=== PATIENT | male | born 1940 | race Caucasian/White ===

== ENCOUNTER 2016-09-29 08:44 | Emergency (ER) | payer OTHER ==
[2016-09-29] MEDS ORDERED: DULCOLAX PR ONE (09:45)
--- NOTE | 2016-09-29 09:47 | PROVIDER DOCUMENTATION ---
HPI-Abdominal Pain/GI Problem - General Source: family - History of Present Illness-ABD Abdominal Pain Onset Location: reports: [facility] Pain Radiation: reports: no radiation Quality of Pain: reports: cramping Severity in ED: reports: mild Onset/Duration: reports: 6 days ago Timing: reports: still present Exposure to sick contacts?: No Modifying Factors: worse with: defecating Associated Symptoms: reports: constipation. denies: vomiting Last BM: 6 days ago Dark Stools Present?: reports: none noticed Rectal Bleeding: reports: none Rectal Pain: reports: none Bruising or Bleeding Gums?: No Similar Symptoms Previously?: No Recently seen or treated by another doctor?: No <Rosalva Vines - Last Filed: 09/29/16 10:08> <Florencio Eldridge - Last Filed: 09/29/16 11:25> - General Chief Complaint: Constipation Stated Complaint: CONSTIPATION Time Seen by Provider: 09/29/16 09:20 Allergies/Adverse Reactions: Patient Allergies Allergy/AdvReac Type Severity Reaction Status Date / Time simvastatin [From Zocor] Allergy Mild HIVES Verified 09/29/16 09:49 Home Medications: ATORVAstatin [Lipitor] 40 mg PO DAILY 09/29/16 Celecoxib 200 mg PO DAILY 09/29/16 Furosemide 40 mg PO DAILY 09/29/16 Isosorbide Mononitrate [Imdur] 120 mg PO DAILY 09/29/16 Metoprolol [Lopressor] 200 mg PO DAILY 09/29/16 Nifedipine [Nifedical Xl] 60 mg PO DAILY 09/29/16 - History of Present Illness-ABD Nature of Presenting Problems: Pt is a 75 yom who came to the ED with a cc of constipation. Pt reports he had knee replacement surgery on Friday and was prescribed pain medication. Pt reports his last bowel movement was on Friday. Pt reports he has the urge to use the restroom but just can't. (Rosalva Vines) Review of Systems - Adult - REVIEW OF SYSTEMS - ADULT Constitutional: denies: chills, fever Eyes: denies: blurred vision, double vision Ears, Nose, Mouth & Throat: reports: no symptoms reported Cardiovascular: denies: orthopnea, PND Respiratory: reports: no symptoms reported Gastrointestinal: reports: abdominal pain, constipation. denies: diarrhea, difficulty swallowing, nausea, vomiting Genitourinary: reports: no symptoms reported Musculoskeletal: reports: no symptoms reported Integumentary: denies: itching, nail changes Neurological: reports: no symptoms reported Psychiatric: reports: no symptoms reported Endocrine: reports: no symptoms reported Hematologic/Lymphatic: reports: no symptoms reported Allergic/Immunologic: reports: no symptoms reported All Other Systems: Reviewed and Negative <Rosalva Vines - Last Filed: 09/29/16 10:08> Past History - Adult - PAST MEDICAL HISTORY-ADULT Review of Records: reports: Old Records Reviewed, Nursing Assessment Review Major Childhood Illnesses: reports: denies history Cardiovascular: reports: cardiac disease (blockage), HTN, hyperlipidemia Respiratory: reports: denies history Gastrointestinal: reports: GERD Obstetrical/Gynecological: reports: denies history Genitourinary: reports: denies history Musculoskeletal: reports: other (restless leg) Neurological: reports: denies history Endocrine/Immune: reports: Diabetes Diabetes Type: Type 2 Other Conditions: reports: denies history - PRIOR SURGERIES/PROCEDURES Surgical/Procedure History: reports: CABG, cardiac stent - IMMUNIZATION STATUS Childhood Immunizations: See Nurse Assessment Flu Vaccine: See Nurse Assessment - FAMILY HISTORY Family History: reviewed, not pertinent <Rosalva Vines - Last Filed: 09/29/16 10:08> Physical Exam-General - PHYSICAL EXAM-ADULT Initial Vital Signs Reviewed: Yes - CONSTITUTIONAL General Appearance: appears well, alert, no apparent distress - EYES Eyes: PERRL/EOMI, pink conjunctivae - HEAD, EARS, NOSE, MOUTH & THROAT HENMT: normocephalic/atraumatic, moist mucous membranes, normal ENT inspection - NECK Neck: non-tender, full range of motion, normal inspection - RESPIRATORY Respiratory: chest non-tender, lungs clear, normal breath sounds - CARDIOVASCULAR Cardiovascular: normal peripheral pulses, regular rate, rhythm, no edema - GASTROINTESTINAL (ABDOMEN) Abdominal Exam: normal bowel sounds, soft, tenderness - LYMPHATIC Lymphatic: no adenopathy - MUSCULOSKELETAL Back Exam: normal inspection, no CVA tenderness, no vertebral tenderness Extremity: normal range of motion, non-tender, normal gait - SKIN Integumentary: normal color, normal turgor, warm/dry - NEUROLOGIC Neurologic: grossly normal, no motor/sensory deficits - PSYCHIATRIC Psych/Mental Status: normal mood/affect, normal thought content, normal thought process, oriented x 3 <Rosalva Vines - Last Filed: 09/29/16 10:08> Progress <Rosalva Vines - Last Filed: 09/29/16 10:08> - REASSESSMENT Reassessment #1 Time Reassessed: 11:23 Status: improving (Pt had a big) Reassessment Comment: Had a big bowel movement and feels relieved. <EldridgeFlorencio X - Last Filed: 09/29/16 11:25> - PLAN OF CARE/RESULTS Progress/Plan/Lab Results: Orders Category Date Time Status KUB ABDOMEN [RAD] Stat Exams 09/29/16 09:26 Taken Bisacodyl [Dulcolax] Med 09/29/16 09:45 Discontinued 20 mg TN NOW ONE Methylnaltrexone [Relistor] Med 09/29/16 10:15 Discontinued 12 mg SUBQ NOW ONE Vital Signs - 24 hr 09/29/16 08:51 Temperature 97.7 F Pulse Rate 58 L Respiratory 18 Rate Blood Pressure 155/70 O2 Sat by Pulse 100 Oximetry (Rosalva Vines) Vital Signs Temp Pulse Resp BP Pulse Ox 09/29/16 08:51 97.7 F 58 L 18 155/70 100 simvastatin [From Zocor] Allergy (Mild, Verified 09/29/16 09:49) HIVES Metformin E.r. [Glucophage Xr] 500 mg PO BID #0 tablet 07/27/16 Nitroglycerin Sl [Nitroglycerin] 0.4 mg SL Q5M PRN PRN #0 tablet 07/27/16 Ropinirole [Requip] 5 mg PO QHS #0 tablet 07/27/16 Rivaroxaban [Xarelto] 10 mg PO Q24H #14 tablet 09/25/16 ATORVAstatin [Lipitor] 40 mg PO DAILY 09/29/16 Celecoxib 200 mg PO DAILY 09/29/16 Furosemide 40 mg PO DAILY 09/29/16 Isosorbide Mononitrate [Imdur] 120 mg PO DAILY 09/29/16 Metoprolol [Lopressor] 200 mg PO DAILY 09/29/16 Nifedipine [Nifedical Xl] 60 mg PO DAILY 09/29/16 Orders Category Date Time Status KUB ABDOMEN [RAD] Stat Exams 09/29/16 09:26 Taken Bisacodyl [Dulcolax] Med 09/29/16 09:45 Discontinued 20 mg TN NOW ONE Diltiazem [Cardizem] Med 09/29/16 10:41 Discontinued 25 mg .ROUTE .STK-MED ONE Methylnaltrexone [Relistor] Med 09/29/16 10:15 Discontinued 12 mg SUBQ NOW ONE (Florecnio Eldridge) Departure <Rosalva Vines - Last Filed: 09/29/16 10:08> - Departure Time of Disposition Order: 11:24 Certified Medical Emergency: Emergent <Florencio Eldridge - Last Filed: 09/29/16 11:25> - Departure DIAGNOSIS: Constipation Qualifiers: Constipation type: drug induced constipation Qualified Code(s): K59.03 - Drug induced constipation Disposition: HOME 01 Condition: Stable Additional Instructions: Follow up with your regular MD in 2-3 days. Continue the stool softener prescribed. Return to ER as needed. Referrals: Bryan Hannon MD [Primary Care Provider] - Attestation - Scribe Verification/Attestation Scribe:: Rosalva Vines Acting as Scribe for:: Florencio Eldridge Scribe documention review:: This chart was documented by a scribe and accurately reflects the service the provider performed and the decisions made by the provider. <Rosalva Vines - Last Filed: 09/29/16 10:08> Physician Attestation
[2016-09-29] MEDS ORDERED: RELISTOR SUBQ ONE (10:15)
[2016-09-29] MEDS ORDERED: CARDIZEM ONE (10:41)
[2016-09-29 11:41] VITALS: BP 147/76
--- NOTE | 2016-09-29 14:09 | Diag Imaging Result Document ---
PROCEDURE NAME: ANETTE ABDOMEN - 09/29/2016 SUPINE RADIOGRAPH OF THE ABDOMEN AND PELVIS: COMPARISON: None available. FINDINGS: There is a fairly large amount of stool throughout the colon suggesting moderate to severe constipation. There is no obstructive bowel pattern. There is no evidence of large-volume free abdominal gas. There is degenerative change at the lower lumbar spine. IMPRESSION: Constipation as described.
== END 2016-09-29 11:40 | disposition home or self-care (01) ==
LOC: ED 08:44
DX: K59.03 Drug induced constipation (principal); Z96.659 Presence of unspecified artificial knee joint; R10.9 Unspecified abdominal pain; I10 Essential (primary) hypertension; E78.5 Hyperlipidemia, unspecified; K21.9 Gastro-esophageal reflux disease without esophagitis; G25.81 Restless legs syndrome; E11.9 Type 2 diabetes mellitus without complications; Z79.899 Other long term (current) drug therapy; Z95.1 Presence of aortocoronary bypass graft; Z95.5 Presence of coronary angioplasty implant and graft
CPT/HCPCS: 74000; 96372

== ENCOUNTER 2017-02-26 10:31 | Inpatient (IN) ==
[2017-02-24 13:05] LABS: HEMATOCRIT 39.7 % (42.0-52.0); MCHC 32.7 g/dL (33-37); MCV 82.4 FL (81-99); MPV 10.5 FL (7.4-10.4); RBC 4.82 XMIL (4.7-6.1)
[2017-02-24 13:27] LABS: POTASSIUM 4.5 mmol/L (3.5-5.1)
[2017-02-26] MEDS ORDERED: KEFZOL 2 GM/D5W 2 GM/50 ML IVPB ONE (10:51)
[2017-02-26] MEDS ORDERED: LR 1,000 ML ONE ×2 (10:51→15:39)
[2017-02-26] MEDS ORDERED: NEOSPORIN G.U. IRRIGANT ONE (13:00)
[2017-02-26] MEDS ORDERED: MARCAINE 0.25% PF ONE (13:00)
[2017-02-26] MEDS ORDERED: DIPRIVAN 1% ONE (14:26)
[2017-02-26] MEDS ORDERED: FENTANYL ONE (14:26)
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
[2017-02-26] MEDS ORDERED: ZOFRAN ONE (15:39)
[2017-02-26] MEDS ORDERED: XYLOCAINE-MPF 2% ONE (15:39)
[2017-02-26] MEDS: MORPHINE ONE ×3 (15:43→16:19)
[2017-02-26] MEDS ORDERED: NS 1,000 ML ONE (15:43)
[2017-02-26] MEDS ORDERED: ZOFRAN IV PRN (15:44)
[2017-02-26] MEDS ORDERED: HALDOL IV PRN (15:44)
[2017-02-26] MEDS ORDERED: MORPHINE IV PRN (15:44)
[2017-02-26] MEDS ORDERED: MILK OF MAGNESIA PO PRN (15:44)
[2017-02-26] MEDS ORDERED: OXY IR PO PRN (15:44)
[2017-02-26] MEDS: TYLENOL PO SCH ×2 (15:52→21:18)
[2017-02-26] MEDS ORDERED: APRESOLINE ONE (16:15)
[2017-02-26] MEDS ORDERED: NITROGLYCERIN SL PRN (17:30)
[2017-02-26] MEDS: LOPRESSOR PO SCH (18:03)
[2017-02-26] MEDS: PROCARDIA ER PO SCH (18:15)
[2017-02-26] MEDS: NS 1,000 ML IV SCH (18:25)
[2017-02-26] MEDS: PERIDEX MT SCH (21:17)
[2017-02-26] MEDS: KEFZOL 2 GM/D5W 2 GM/50 ML IVPB IV SCH (21:17)
[2017-02-26] MEDS: COLACE PO SCH (21:18)
[2017-02-26] MEDS: REQUIP PO SCH (21:18)
[2017-02-26] MEDS: GLUCOPHAGE XR PO SCH (21:21)
[2017-02-27] MEDS: NS 1,000 ML IV SCH ×2 (03:06→15:59)
[2017-02-27] MEDS: TYLENOL PO SCH ×3 (03:06→18:47)
[2017-02-27] MEDS: XARELTO PO SCH (05:32)
[2017-02-27] MEDS: KEFZOL 2 GM/D5W 2 GM/50 ML IVPB IV SCH (05:32)
[2017-02-27 06:06] LABS: HEMATOCRIT 39.8 % (42.0-52.0); HEMOGLOBIN 12.8 g/dL (14.0-18.0)
[2017-02-27 06:42] LABS: CALCIUM 8.7 mg/dL (8.8-10.2); POTASSIUM 4.8 mmol/L (3.5-5.1)
--- NOTE | 2017-02-27 07:10 | PROGRESS NOTE ---
DATE: 02/27/2017 SUBJECTIVE: Patient is a 76-year-old male, who is 1 day status post open reduction, internal fixation right patella. He is currently resting comfortably. He has no complaints. OBJECTIVE: The patient's dressing is intact. His calf is soft. He has active dorsiflexion, plantar flexion. He is neurovascularly intact distally. LABORATORY DATA: His hemoglobin is 12.8, hematocrit is 39.8. IMPRESSION: Postop day #1 status post open reduction, internal fixation right patella. PLAN: At this point, will change his dressing. The patient will be maintained in a knee immobilizer with his knee in full extension. He will be touchdown weightbearing right lower extremity. Patient has multiple medical problems, and with previous lacunar infarcts, right cerebral hemisphere, left-sided weakness, transient essential hypertension. Type 2 diabetes mellitus, ischemic heart disease, and it was felt that patient would benefit from inpatient rehabilitation. We will consult [employer] for discharge planning. cc: Chauncey Johnson MD
[2017-02-27] MEDS ORDERED: OXY IR PO PRN (07:15)
[2017-02-27] MEDS: PERIDEX MT SCH ×2 (09:14→21:56)
[2017-02-27] MEDS: PROCARDIA ER PO SCH (09:14)
[2017-02-27] MEDS: FERROUS SULFATE PO SCH (09:14)
[2017-02-27] MEDS: LOPRESSOR PO SCH (09:14)
[2017-02-27] MEDS: LASIX PO SCH (09:14)
[2017-02-27] MEDS: GLUCOPHAGE XR PO SCH ×2 (09:14→21:56)
--- NOTE | 2017-02-27 15:34 | Diag Imaging Result Doc PS360 ---
EXAM: CHEST-PORTABLE - 02/27/2017 HISTORY: rehab TECHNIQUE: Portable chest 1515 COMPARISON: 07/26/2016 FINDINGS: There is stable cardiomegaly. There are sternal wires from previous surgery and transvenous cardiac pacemaker again seen. The lungs appear essentially clear. There is no pleural effusion or pneumothorax identified. IMPRESSION: Stable cardiomegaly. No evidence of acute disease. Electronically signed by Derrick Davis 02/27/2017 3:32 PM
[2017-02-27] MEDS: COLACE PO SCH (21:56)
[2017-02-27] MEDS: REQUIP PO SCH (21:57)
[2017-02-27] MEDS: LIPITOR PO SCH (21:57)
[2017-02-28] MEDS: TYLENOL PO SCH (03:06)
[2017-02-28] MEDS ORDERED: TYLENOL PR PRN (06:13)
[2017-02-28] MEDS ORDERED: TYLENOL PO PRN (06:18)
[2017-02-28 06:20] LABS: HEMATOCRIT 35.9 % (42.0-52.0); HEMOGLOBIN 11.7 g/dL (14.0-18.0)
[2017-02-28] MEDS: XARELTO PO SCH (06:49)
--- NOTE | 2017-02-28 06:53 | PROGRESS NOTE ---
DATE: 02/28/2017 SUBJECTIVE: The patient is a 76-year-old male who is 2 days status post open reduction, internal fixation right patella. He is currently resting comfortably. He has no complaints. OBJECTIVE: On physical exam of his right lower extremity, wound looks good. There are no signs or symptoms of infection. He has some mild swelling. Calf is soft. He has active dorsiflexion and plantar flexion. LABORATORY DATA: Hemoglobin is 11.7 and hematocrit 35.9. IMPRESSION: Postop day #2, status post open reduction internal fixation right patella. PLAN: At this point, patient will be maintained in the immobilizer in full extension. He will progress in physical therapy to touchdown weightbearing right lower extremity. We will plan on discharge to rehab tomorrow. cc: Chauncey Johnson MD
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
[2017-02-28] MEDS: LASIX PO SCH (08:20)
[2017-02-28] MEDS: FERROUS SULFATE PO SCH (08:20)
[2017-02-28] MEDS: PROCARDIA ER PO SCH (08:20)
[2017-02-28] MEDS: LOPRESSOR PO SCH (08:20)
[2017-02-28] MEDS: GLUCOPHAGE XR PO SCH ×2 (08:20→22:24)
[2017-02-28] MEDS: PERIDEX MT SCH ×2 (08:22→22:24)
[2017-02-28] MEDS ORDERED: GLYCERIN ADULT PR ONE (11:54)
[2017-02-28] MEDS: LIPITOR PO SCH (22:24)
[2017-02-28] MEDS: REQUIP PO SCH (22:24)
[2017-02-28] MEDS: COLACE PO SCH (22:24)
[2017-03-01 05:22] LABS: HEMATOCRIT 36.3 % (42.0-52.0); HEMOGLOBIN 11.9 g/dL (14.0-18.0)
[2017-03-01] MEDS: XARELTO PO SCH (06:58)
[2017-03-01] MEDS: LOPRESSOR PO SCH ×2 (07:41→11:00)
[2017-03-01] MEDS: GLUCOPHAGE XR PO SCH ×2 (07:41→10:59)
[2017-03-01] MEDS: PERIDEX MT SCH ×2 (07:41→10:59)
[2017-03-01] MEDS: FERROUS SULFATE PO SCH (07:41)
[2017-03-01] MEDS: LASIX PO SCH ×2 (07:41→10:59)
[2017-03-01] MEDS: PROCARDIA ER PO SCH ×2 (07:44→10:59)
[2017-03-01 11:20] VITALS: BP 136/72
== END 2017-03-01 12:49 ==
LOC: OR 10:31 → INTOOBSV 11:08 → 4N 14:11
PROVIDERS: ADMIT Orthopaedic Surgery Adult Reconstructive Orthopaedic Surgery; ATTEND Orthopaedic Surgery Adult Reconstructive Orthopaedic Surgery

== ENCOUNTER 2018-10-28 05:21 | Inpatient (IN) ==
--- NOTE | 2018-10-19 10:22 | EKG Report ---
Test Performed on : 10/19/2018 10:04:51 AM Test Reason : PAT Blood Pressure : / mmHG Vent. Rate : 063 BPM Atrial Rate : 375 BPM P-R Int : 000 ms QRS Dur : 096 ms QT Int : 446 ms P-R-T Axes : 000 098 -53 degrees QTc Int : 456 ms Atrial fibrillation. with occasional ventricular-paced complexes with premature ventricular or aberra ntly conducted complexes. Rightward axis Cannot rule out Anterior infarct , age undetermined ST & T wave abnormality, consider inferolateral ischemia Abnormal ECG When compared with ECG of 08-AUG-2017 06:50, No significant change was found Confirmed by Parvez CHUA, Bryan Justin ([id number]) on 10/19/2018 5:40:36 PM
[2018-10-19 12:04] LABS: BASO# 0.02 X1000 (0.0-0.2); BASO% 0.3 % (0.0-0.8); EOS% 2.7 % (0.0-10.0); HEMATOCRIT 44.2 % (42.0-52.0); LYMPH# 1.88 X1000 (1.2-3.4); LYMPH% 25.4 % (20.5-51.1); MCH 25.8 PG (27-31); MCHC 31.7 g/dL (33-37); MCV 81.5 FL (81-99); MONO# 0.35 X1000 (0.11-0.59); MONO% 4.7 % (1.7-9.3); MPV 10.6 FL (7.4-10.4); NEUT# 4.95 X1000 (1.4-6.5); NEUT% 66.9 % (42.2-75.2); PLT 273 X1000 (130-400); RBC 5.42 XMIL (4.7-6.1); RDW 14.5 % (11.5-14.5); URINE SOURCE CLEAN CATCH
[2018-10-19 12:08] LABS: BILIRUBIN URINE NEGATIVE (NEGATIVE); BLOOD URINE SMALL (NEGATIVE); COLOR YELLOW; GLUCOSE URINE NEGATIVE (NEGATIVE); KETONE URINE NEGATIVE (NEGATIVE); LEUKOCYTES URINE NEGATIVE (NEGATIVE); NITRITE URINE NEGATIVE (NEGATIVE); PH URINE 6.5; PROTEIN URINE 50 mg/dL (NEGATIVE); SP GRAVITY URINE 1.017; TURBIDITY URINE CLEAR (CLEAR); UROBILINOGEN URINE NORMAL (NORMAL)
[2018-10-19 12:09] LABS: UR EPITHELIAL CELLS <10 /HPF (<10); URINE BACTERIA NEGATIVE /HPF; URINE RBC <10 /HPF (<10); URINE WBC <10 /HPF (<10)
[2018-10-19 12:15] LABS: INR 1.03; PROTIME 14.4 Seconds (11.0-16.0); PTT 29.4 Seconds (22.3-41.8)
[2018-10-19 12:49] LABS: CALCIUM 9.4 mg/dL (8.8-10.2); CREATININE 1.3 mg/dL (0.7-1.2); POTASSIUM 4.8 mmol/L (3.5-5.1)
[2018-10-28] MEDS ORDERED: LR 1,000 ML ONE (05:53)
[2018-10-28] MEDS ORDERED: PEPCID ONE (05:53)
[2018-10-28] MEDS ORDERED: REGLAN ONE (05:53)
[2018-10-28] MEDS ORDERED: LYRICA ONE (05:53)
[2018-10-28] MEDS ORDERED: COLACE ONE (05:53)
[2018-10-28] MEDS ORDERED: CELEBREX ONE (05:53)
[2018-10-28] MEDS ORDERED: KEFZOL 1 GM/D5W 2 GM/100 ML IVPB ONE (05:54)
[2018-10-28] MEDS ORDERED: DIPRIVAN 1% 500 MG/50 ML BOTTLE ONE (06:19)
[2018-10-28] MEDS ORDERED: ROBINUL ONE (06:36)
[2018-10-28] MEDS ORDERED: XYLOCAINE-MPF 2% ONE (06:36)
[2018-10-28] MEDS ORDERED: DECADRON ONE (06:39)
[2018-10-28] MEDS ORDERED: FENTANYL ONE (06:40)
[2018-10-28] MEDS ORDERED: SODIUM CHLORIDE 0.9% 20 ML ONE (06:41)
[2018-10-28] MEDS ORDERED: NEO-SYNEPHRINE ONE (06:41)
[2018-10-28] MEDS ORDERED: VERSED ONE (06:41)
[2018-10-28] MEDS ORDERED: TORADOL ONE (06:50)
[2018-10-28] MEDS ORDERED: VANCOMYCIN ONE (06:50)
[2018-10-28] MEDS ORDERED: DURAMORPH ONE (06:50)
[2018-10-28] MEDS ORDERED: EXPAREL 1.3% ONE (06:51)
[2018-10-28] MEDS ORDERED: CYKLOKAPRON 1,000 MG/NS 0 MG/0 ML IVPB ONE (06:51)
[2018-10-28] MEDS ORDERED: NEOSPORIN G.U. IRRIGANT ONE (06:51)
[2018-10-28] MEDS ORDERED: SODIUM CHLORIDE 0.9% ONE (06:51)
[2018-10-28] MEDS ORDERED: SENSORCAINE-MPF 0.5%/EPI 1:200,000 ONE (06:51)
[2018-10-28] MEDS ORDERED: CYKLOKAPRON 1,000 MG/NS 1,000 MG/100 ML IVPB ONE (07:22)
[2018-10-28] MEDS ORDERED: ZOFRAN ONE (07:42)
[2018-10-28] MEDS ORDERED: OFIRMEV 1000 MG/ISOTONIC SOLN 1,000 MG/100 ML BOTTLE ONE (07:45)
[2018-10-28 08:34] LABS: URINE SOURCE CATH
[2018-10-28] MEDS ORDERED: EPHEDRINE ONE (08:39)
[2018-10-28] MEDS ORDERED: DILAUDID ONE (08:46)
[2018-10-28 09:02] LABS: BILIRUBIN URINE NEGATIVE (NEGATIVE); BLOOD URINE TRACE (NEGATIVE); COLOR YELLOW; GLUCOSE URINE NEGATIVE (NEGATIVE); KETONE URINE NEGATIVE (NEGATIVE); LEUKOCYTES URINE NEGATIVE (NEGATIVE); NITRITE URINE NEGATIVE (NEGATIVE); PROTEIN URINE TRACE mg/dL (NEGATIVE); SP GRAVITY URINE 1.015; TURBIDITY URINE CLEAR (CLEAR); UR EPITHELIAL CELLS <10 /HPF (<10); URINE BACTERIA NEGATIVE /HPF; URINE RBC <10 /HPF (<10); URINE WBC <10 /HPF (<10); UROBILINOGEN URINE NORMAL (NORMAL)
[2018-10-28] MEDS ORDERED: NS 1,000 ML ONE (09:07)
[2018-10-28] MEDS: DILAUDID ONE ×4 (09:15→10:05)
--- NOTE | 2018-10-28 09:53 | Diag Imaging Result Doc PS360 ---
EXAM: KNEE 1-2 VIEWS-LEFT HISTORY: L TKA TECHNIQUE: Left knee, two views COMPARISON: None. FINDINGS: There has been recent orthopedic replacement of the left knee. Good alignment to the femoral and tibial components. There are anterior skin brandy and there is a superior surgical drain. IMPRESSION: Normal postop knee. Electronically signed by Axel Szymanski 10/28/2018 9:51 AM
[2018-10-28] MEDS ORDERED: ZOFRAN PO PRN (11:15)
[2018-10-28] MEDS ORDERED: OXY IR PO PRN ×2 (11:15)
[2018-10-28] MEDS ORDERED: OXY IR ONE (11:24)
[2018-10-28] MEDS: BASAGLAR SUBQ SCH (12:53)
[2018-10-28] MEDS: NS 1,000 ML IV SCH ×2 (12:57→21:47)
[2018-10-28] MEDS ORDERED: KEFZOL 2 GM/D5W 2 GM/50 ML IVPB IV SCH (15:00)
--- NOTE | 2018-10-28 16:00 | OPERATIVE NOTE ---
PROCEDURE DATE: 10/28/2018 PREOPERATIVE DIAGNOSIS: Degenerative osteoarthritis of the left knee. POSTOPERATIVE DIAGNOSIS: Degenerative osteoarthritis of the left knee. PROCEDURE: Left total knee arthroplasty with a DePuy Attune size 7 posterior stabilized femur, size 7 tibial tray, a 6 mm rotating platform tibial insert, and a 38 mm medialized anatomic patella. SURGEON: Chauncey Johnson MD. FIRST ASSISTANTS: MELODY Villasenor. SECOND PM TECHNICIAN: Lewis Zapata RN. ANESTHESIA: General. IV FLUIDS: 1500 mL lactated Ringer. ESTIMATED BLOOD LOSS: 25 mL. TOURNIQUET TIME: 75 minutes at 300 mmHg. COMPLICATIONS: None. INDICATION: The patient is a 77-year-old male with a chronic history of pain and discomfort of his left knee. X-rays revealed significant degenerative osteoarthritis and his pain has progressed to affect his activities of daily living. Recommendation to proceed with left total knee arthroplasty was offered. Risks and benefits of surgery were explained, including the risks of anesthesia, , bleeding, infection, failure to relieve pain, postoperative stiffness, nerve injury, blood clots, and other imponderables. All questions were answered and the patient and family wish to proceed with surgery. DETAILS OF OPERATION: The patient was taken to the operating room and placed supine on the operating table. Once adequate anesthesia was obtained, patient's left lower extremity was subsequently prepped and draped in usual sterile fashion. Esmarch was used to exsanguinate the left lower extremity. The tourniquet was inflated to 350 mmHg. A standard anterior incision was made with a skin knife. Medial and lateral skin envelopes were developed. Standard medial parapatellar arthrotomy was then performed. Patella fat pad was excised. Retractor was then placed approximately 1 cm anterior to the PCL insertion. A starting reamer was passed. Intramedullary guide with a distal cutting block was pinned in position. Distal femoral cut was then performed in a standard fashion. A sizing block was placed and measured to size 7. Corresponding pins were placed. A size 7 cutting block was placed in position. Anterior, posterior, chamfer cuts were then made. Attention then turned to the proximal tibia where the extramedullary guide and proximal tibia cutting block was pinned in position. Proximal tibia was then resected. A curved osteotome was used to remove the posterior osteophytes off the distal femur. A spacer block was placed and had good soft tissue balancing in both flexion and extension. Attention then turned back to the proximal tibia where a size 7 tibial tray appeared to be the correct size. This was pinned in position. This was followed by a central reamer and a fin punch. A box cutting guide was placed on the distal femur. A box cut was performed. A trial femoral component was then placed and the 2 lug holes were drilled. A tibial insert was placed and had good soft tissue balancing. The patella was everted and resected in a standard fashion. A size 38 appeared to be the correct size. Corresponding holes were drilled. A trial component was then placed and had good patellofemoral tracking. The trial components were removed. Copious irrigation was performed with antibiotic pulsatile lavage while vancomycin was mixed with cement on the back table. Sequential cementing was then performed first with the tibial tray and excess cement with a Alfred, followed by the femoral component and excess cement was removed with a Alfred, followed by trial tibial insert in full extension. Axial loading was maintained while cement cured. The patella component was cemented in standard fashion. Patella clamp was placed. While cement was curing, Exparel was placed in the deep soft tissue, as well as the subcutaneous tissue. After cement had cured, a size 6 mm rotating platform tibial insert appeared to be the correct size. The trial components were removed. Exparel was placed in the deep posterior capsule. The wound was copiously irrigated with antibiotic pulsatile lavage. A 6 mm rotating platform tibial insert was then placed and the knee was then carried through range of motion and had good range of motion, good soft tissue balance, and good patellofemoral tracking. A 1/8 Hemovac drain was placed but was not sewn in. Irrigation was performed once again. Number 1 Vicryl was used to repair the arthrotomy, followed by 2-0 Vicryl to repair the subcutaneous tissue, and skin brandy. Adaptic, sterile 4 x 4s, ABD pad, and tape was applied to the right shoulder, followed by a shoulder immobilizer. The patient tolerated the procedure well, no complications, and transferred to recovery room in stable condition. cc: Chauncey Johnson MD
[2018-10-28] MEDS: KEFZOL 2 GM in D5W 50 ML IV SCH (17:36)
[2018-10-28] MEDS: TYLENOL PO PRN (21:47)
[2018-10-28] MEDS: PERIDEX MT SCH (21:48)
[2018-10-28] MEDS: PROCARDIA ER PO SCH (21:48)
[2018-10-28] MEDS: TENORMIN PO SCH (21:48)
[2018-10-28] MEDS: REQUIP PO SCH (21:48)
[2018-10-28] MEDS: GLUCOPHAGE XR PO SCH (21:48)
[2018-10-29] MEDS: KEFZOL 2 GM in D5W 50 ML IV SCH (01:27)
[2018-10-29] MEDS: NS 1,000 ML IV SCH ×2 (05:09→16:10)
[2018-10-29] MEDS: TYLENOL PO PRN (05:53)
[2018-10-29] MEDS: ELIQUIS PO SCH (05:53)
[2018-10-29] MEDS: OXY IR PO PRN (06:00)
[2018-10-29 06:05] LABS: CALCIUM 8.6 mg/dL (8.8-10.2); CREATININE 1.8 mg/dL (0.7-1.2); POTASSIUM 5.4 mmol/L (3.5-5.1)
[2018-10-29 06:13] LABS: HEMATOCRIT 35.6 % (42.0-52.0); HEMOGLOBIN 11.2 g/dL (14.0-18.0)
--- NOTE | 2018-10-29 06:18 | PROGRESS NOTE ---
DATE: 10/29/2018 SUBJECTIVE: The patient is a pleasant 77-year-old male, who is 1 day status post left total knee arthroplasty. He is currently resting comfortably. OBJECTIVE: On physical exam, patient's wound looks good. There is no signs or symptoms of infection. He is grossly neurovascular intact. Does have active dorsiflexion and plantar flexion. LABS: Are pending. IMPRESSION: Postoperative day #1 status post left total knee arthroplasty. PLAN: At this point, his dressing was changed. He will discontinue his drain and Hep-Lock his IV. We will get mobilization with physical therapy. Given the patient's multiple medical problems including previous CVA and his limited mobility and coronary artery disease, with previous pacemaker and ICD, it was felt the patient would benefit from inpatient rehabilitation. He and his family are agreeable to this. We will consult clinical social work therapist for discharge planning. cc: Chauncey Johnson MD
[2018-10-29] MEDS ORDERED: INSULIN PEN NEEDLES ONE (06:56)
[2018-10-29] MEDS: BASAGLAR SUBQ SCH (12:48)
[2018-10-29] MEDS: PERIDEX MT SCH ×2 (13:25→21:52)
[2018-10-29] MEDS: TENORMIN PO SCH (21:52)
[2018-10-29] MEDS: PROCARDIA ER PO SCH (21:52)
[2018-10-29] MEDS: GLUCOPHAGE XR PO SCH (21:52)
[2018-10-29] MEDS: REQUIP PO SCH (21:52)
[2018-10-30] MEDS: OXY IR PO PRN ×3 (05:36→21:47)
[2018-10-30] MEDS: ELIQUIS PO SCH (05:36)
[2018-10-30] MEDS: NS 1,000 ML IV SCH ×2 (05:37→18:06)
[2018-10-30 06:03] LABS: HEMATOCRIT 31.8 % (42.0-52.0)
[2018-10-30 06:42] LABS: CALCIUM 8.3 mg/dL (8.8-10.2); CREATININE 1.5 mg/dL (0.7-1.2); POTASSIUM 4.9 mmol/L (3.5-5.1)
--- NOTE | 2018-10-30 08:54 | PROGRESS NOTE ---
DATE: 10/30/2018 SUBJECTIVE: The patient is a pleasant 77-year-old male, who is 2 days status post left total knee arthroplasty. He is currently resting comfortably. OBJECTIVE: Left lower extremity: Left lower extremity wound looks good. There is no signs or symptoms of infection. He does have some swelling of the lower extremity. He has active dorsiflexion and plantar flexion appeared. Hemoglobin is 10.1. Hematocrit is 31.8. IMPRESSION: Postoperative day #2 status post left total knee arthroplasty. PLAN: At this point, patient will continue progress with Physical Therapy. [employer] has been consulted for discharge planning. Would anticipate discharge to rehab tomorrow. cc: Chauncey Johnson MD
--- NOTE | 2018-10-30 09:02 | Diag Imaging Result Doc PS360 ---
EXAM: CHEST-1 VIEW 10/30/2018 HISTORY: REHAB TECHNIQUE: AP upright portable at 0834 COMMENT: There is cardiomegaly. The inspiration is somewhat suboptimal. There is no evidence of acute pulmonary disease. IMPRESSION: Cardiomegaly. Electronically signed by Aamir Leahy 10/30/2018 9:00 AM
[2018-10-30] MEDS: BASAGLAR SUBQ SCH (09:30)
[2018-10-30] MEDS: PERIDEX MT SCH ×2 (09:31→21:47)
--- NOTE | 2018-10-30 12:36 | DISCHARGE SUMMARY ---
ADMISSION DATE: 10/28/2018 DISCHARGE DATE: 11/02/2018 ADMITTING DIAGNOSES: 1. Degenerative osteoarthritis of the left knee. 2. Coronary artery disease. 3. Previous cerebrovascular accident. 4. Diabetes. 5. Hypertension. 6. Kidney disease. POSTOPERATIVE DIAGNOSES: 1. Degenerative osteoarthritis of the left knee. 2. Coronary artery disease. 3. Previous cerebrovascular accident. 4. Diabetes. 5. Hypertension. 6. Kidney disease. 7. Status post left total knee arthroplasty. BRIEF HISTORY: The patient is a pleasant 77-year-old male with multiple medical problems, who has had a longstanding history of pain and discomfort in his left knee. His pain has progressed to affect his activities of daily living. X-rays revealed significant degenerative arthritis. Recommendation was to proceed with left total knee arthroplasty was offered. Risks and benefits of surgery were explained including risk of anesthesia, , bleeding, infection, failure to relieve pain, postoperative stiffness, nerve injury, blood clots and other imponderables. All questions were answered. The patient and family wished to proceed with surgery. HOSPITAL COURSE AND TREATMENT: The patient was admitted to the hospital and underwent left total knee arthroplasty. He tolerated the procedure well. The patient had an uneventful postoperative course. By postoperative day number 2, his hemoglobin and hematocrit stabilized to 10.0 and hematocrit of 31.8. His preoperative creatinine was 1.3 and by postoperative day number 2 was stabilized at 1.5. The patient progressed with physical therapy and decided to go home with Home Health PT instead of inpatient rehab. Prior to discharge, the patient was afebrile and tolerating a regular diet. Wound looked good. There were no signs or symptoms of infection, and he was progressing with physical therapy. DISCHARGE MEDICATIONS: 1. Oxy-IR 5 mg 1 p.o. q.4 hours p.r.n. pain. 2. For remaining medications, please see medication list. DISCHARGE INSTRUCTIONS: 1. The patient will be discharged home with Home Health PT. 2. Consult physical therapy with full weightbearing left lower extremity and range of motion and gait training per total knee protocol. 3. Follow up in the office in 2 weeks. cc: Chauncey Johnson MD MTDD
[2018-10-30] MEDS: GLUCOPHAGE XR PO SCH (21:47)
[2018-10-30] MEDS: PROCARDIA ER PO SCH (21:47)
[2018-10-30] MEDS: REQUIP PO SCH (21:48)
[2018-10-30] MEDS: TENORMIN PO SCH (21:48)
[2018-10-31] MEDS: OXY IR PO PRN ×2 (05:26→21:54)
[2018-10-31] MEDS: ELIQUIS PO SCH (05:26)
[2018-10-31 06:00] LABS: HEMATOCRIT 32.5 % (42.0-52.0); HEMOGLOBIN 10.2 g/dL (14.0-18.0)
[2018-10-31] MEDS: PERIDEX MT SCH ×2 (09:20→21:55)
[2018-10-31] MEDS: BASAGLAR SUBQ SCH (09:21)
[2018-10-31] MEDS: NS 1,000 ML IV SCH ×2 (09:24→21:51)
--- NOTE | 2018-10-31 14:00 | PROGRESS NOTE ---
DATE: 10/31/2018 SUBJECTIVE: Mr. Vila is sitting in his bedside chair this morning. Overall, he is doing really well. Not really complaining of a lot of pain. OBJECTIVE: Left lower extremity exam: His incision is clean, dry, and intact. He has got his ice cooler on there as well. He is neurovascularly intact. Left lower extremity without a lot of swelling to that leg. ASSESSMENT: Status post left total knee arthroplasty. PLAN: Everything should be set for Mr. Vila to be discharged to rehab today. Petrophysical Engineer is making final plans I am okay with him being discharged today to rehab, and he will call the office on Friday for an appointment for follow up with Dr. Johnson. cc: MD Chauncey Caal MD
[2018-10-31] MEDS: TENORMIN PO SCH (21:55)
[2018-10-31] MEDS: GLUCOPHAGE XR PO SCH (21:55)
[2018-10-31] MEDS: REQUIP PO SCH (21:55)
[2018-10-31] MEDS: PROCARDIA ER PO SCH (21:59)
[2018-11-01] MEDS: ELIQUIS PO SCH (05:23)
[2018-11-01] MEDS: BASAGLAR SUBQ SCH (08:38)
[2018-11-01] MEDS: PERIDEX MT SCH ×2 (08:38→21:28)
[2018-11-01] MEDS: GLUCOPHAGE XR PO SCH (08:38)
[2018-11-01] MEDS: PROCARDIA ER PO SCH (08:38)
[2018-11-01] MEDS: TENORMIN PO SCH (08:38)
[2018-11-01] MEDS: REQUIP PO SCH (10:07)
[2018-11-01] MEDS: NS 1,000 ML IV SCH (10:50)
[2018-11-02] MEDS: ELIQUIS PO SCH (05:58)
--- NOTE | 2018-11-02 06:37 | PROGRESS NOTE ---
DATE: 11/02/2018 SUBJECTIVE: The patient is a pleasant, 77-year-old male who is 5 days status post left total knee arthroplasty. Patient is resting comfortably this morning. PHYSICAL EXAMINATION: His left lower extremity wound looks good. There are no signs or symptoms of infection. Calf is soft. He has active dorsiflexion and plantar flexion. IMPRESSION: Postoperative day number 5, status post left total knee arthroplasty. PLAN: At this point, still awaiting rehab bed placement. The patient will be discharged today if a bed is available. cc: Chauncey Johnson MD
[2018-11-02] MEDS: PROCARDIA ER PO SCH (08:04)
[2018-11-02] MEDS: PERIDEX MT SCH (08:04)
[2018-11-02] MEDS: TENORMIN PO SCH (08:04)
[2018-11-02] MEDS: GLUCOPHAGE XR PO SCH (08:05)
[2018-11-02] MEDS: REQUIP PO SCH (08:05)
[2018-11-02] MEDS: BASAGLAR SUBQ SCH (08:05)
[2018-11-02 16:07] VITALS: BP 143/63
== END 2018-11-02 17:37 | DRG 470 ==
LOC: SURHOLD 05:21 → 4N 12:03
PROVIDERS: ADMIT Orthopaedic Surgery Adult Reconstructive Orthopaedic Surgery; ATTEND Orthopaedic Surgery Adult Reconstructive Orthopaedic Surgery
CPT/HCPCS: 71010; 71045; 73560; 80048; 81001; 82948; 85014; 85018; 85025; 85610; 85730; 86850; 86900; 86901; 88305; 88311; 93005; 93010; 94761; 94799; 97110; 97116; 97162; 97165; 97530; 97535; A9270; C9290; J0131; J0690; J1100; J1170; J1885; J2250; J2274; J2275; J2370; J2405; J3010; J3370; J7030; J7060; J7120; Q9974; XXXXX

== ENCOUNTER 2018-11-10 13:30 | Observation (INO) ==
[2018-11-10 14:11] LABS: BASO# 0.02 X1000 (0.0-0.2); BASO% 0.2 % (0.0-0.8); EOS# 0.16 X1000 (0.0-0.7); EOS% 1.9 % (0.0-10.0); HEMATOCRIT 31.1 % (42.0-52.0); IMM GRAN# 0.03 X1000 (0.0-0.04); IMM GRAN% 0.4 % (0.0-0.5); LYMPH# 0.97 X1000 (1.2-3.4); LYMPH% 11.6 % (20.5-51.1); MCH 26.2 PG (27-31); MCHC 32.2 g/dL (33-37); MCV 81.6 FL (81-99); MONO# 0.45 X1000 (0.11-0.59); MONO% 5.4 % (1.7-9.3); MPV 10.1 FL (7.4-10.4); NEUT# 6.71 X1000 (1.4-6.5); NEUT% 80.5 % (42.2-75.2); PLT 305 X1000 (130-400); RBC 3.81 XMIL (4.7-6.1); WBC 8.34 X1000 (4.8-10.8)
[2018-11-10 14:39] LABS: ALBUMIN 3.6 g/dL (3.5-5.0); CALCIUM 8.9 mg/dL (8.8-10.2); CREATININE 1.6 mg/dL (0.7-1.2); POTASSIUM 4.4 mmol/L (3.5-5.1); TOTAL BILIRUBIN 1.1 mg/dL (0.20-1.00); TOTAL PROTEIN 6.6 g/dL (6.3-8.3)
--- NOTE | 2018-11-10 15:30 | EKG Report ---
Test Performed on : 11/10/2018 1:36:48 PM Test Reason : SOB Blood Pressure : / mmHG Vent. Rate : 057 BPM Atrial Rate : 267 BPM P-R Int : 000 ms QRS Dur : 096 ms QT Int : 468 ms P-R-T Axes : 000 -29 158 degrees QTc Int : 455 ms Atrial fibrillation. with slow ventricular response. with premature ventricular or aberrantly conduct ed complexes. ST & T wave abnormality, consider lateral ischemia Abnormal ECG When compared with ECG of 19-OCT-2018 10:04, Atrial fibrillation. has replaced Electronic ventricular pacemaker Unconfirmed Result
--- NOTE | 2018-11-10 15:32 | Extremity Venous Study ---
EXAM: Venous U/S Left Leg HISTORY: LE swelling. recent knee surgery TECHNIQUE: [place] scale, color Doppler, and duplex evaluation was performed. COMPARISON: None. FINDINGS: The deep veins of the left lower extremity demonstrate nonocclusive, noncompressible thrombosis within the proximal superficial femoral vein, distal superficial femoral vein, and one of the posterior tibial veins consistent with acute DVT. The superficial veins appear patent. IMPRESSION: Acute nonocclusive deep venous thrombosis left lower extremity. Preliminary interpretation to ER was given by the performing technologist. Electronically signed by Katalina Blake 11/10/2018 3:30 PM
[2018-11-10] MEDS ORDERED: ELIQUIS PO ONE (17:17)
[2018-11-10] MEDS ORDERED: HEPARIN IV ONE (17:17)
[2018-11-10 18:42] LABS: INR 1.13; PROTIME 15.1 Seconds (11.0-16.0)
[2018-11-10 18:43] LABS: PTT 38.4 Seconds (22.3-41.8)
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
[2018-11-10] MEDS ORDERED: OXY IR PO PRN (19:16)
[2018-11-10] MEDS ORDERED: LOVENOX 1 MG/KG SUBQ ONE (19:17)
[2018-11-10] MEDS ORDERED: ZOFRAN IV PRN (19:18)
[2018-11-10] MEDS ORDERED: TYLENOL PO PRN (19:18)
[2018-11-10] MEDS ORDERED: REQUIP PO SCH (21:00)
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
[2018-11-11 05:31] VITALS: BP 143/67
[2018-11-11 07:27] LABS: CALCIUM 8.5 mg/dL (8.8-10.2); CREATININE 1.5 mg/dL (0.7-1.2); MAGNESIUM 2.3 mg/dL (1.5-2.7); POTASSIUM 4.4 mmol/L (3.5-5.1)
[2018-11-11 07:33] LABS: HEMATOCRIT 30.7 % (42.0-52.0); HEMOGLOBIN 9.7 g/dL (14.0-18.0); MCH 25.9 PG (27-31); MCHC 31.6 g/dL (33-37); MCV 81.9 FL (81-99); MPV 10.4 FL (7.4-10.4); RBC 3.75 XMIL (4.7-6.1); WBC 7.22 X1000 (4.8-10.8)
--- NOTE | 2018-11-11 08:20 | Diag Imaging Result Doc PS360 ---
EXAM: CHEST-2 VIEWS - 11/11/2018 HISTORY: hypoxia TECHNIQUE: Chest two views COMPARISON: 10/30/2018 portable chest and 06/24/2018 chest two views FINDINGS: There is cardiomegaly similar to prior. There are sternal wires from previous surgery and transvenous cardiac pacemaker again seen. There is some tortuosity of the thoracic aorta similar to prior. The lungs appear essentially clear. There is no pleural effusion or pneumothorax identified. IMPRESSION: Cardiomegaly. No acute changes. Electronically signed by Derrick Davis 11/11/2018 8:18 AM
[2018-11-11] MEDS ORDERED: GLUCOPHAGE XR PO SCH (09:00)
[2018-11-11] MEDS ORDERED: ADALAT CC PO SCH (09:00)
[2018-11-11] MEDS ORDERED: TENORMIN PO SCH (09:00)
[2018-11-11] MEDS ORDERED: REQUIP PO SCH (09:00)
[2018-11-11] MEDS ORDERED: BASAGLAR SUBQ SCH (09:00)
[2018-11-11] MEDS ORDERED: ASPIRIN PO SCH (09:00)
[2018-11-11] MEDS ORDERED: ELIQUIS PO SCH (09:00)
[2018-11-11] MEDS ORDERED: INSULIN PEN NEEDLES ONE (09:01)
--- NOTE | 2018-11-11 10:15 | Diag Imaging Result Doc PS360 ---
EXAM: LUNG SCAN / VQ - 11/10/2018 HISTORY: sob, recent surgery, +DVT TECHNIQUE: Lung ventilation and perfusion scan. Ventilation images performed using 40.2 mCi technetium 99m DTPA inhaled. Perfusion images performed using 5.8 mCi technetium 99m MAA administered intravenously. Ventilation and perfusion images are obtained in multiple projections over the lungs. COMPARISON: None. FINDINGS: Ventilation perfusion images are relatively homogeneous. There is no ventilation/perfusion mismatch identified. IMPRESSION: Low probability for pulmonary embolism. Electronically signed by Derrick Davis 11/11/2018 10:13 AM
--- NOTE | 2018-11-11 15:06 | DISCHARGE SUMMARY ---
ADMISSION DATE: 11/10/2018 DISCHARGE DATE: 11/11/2018 CONSULTATIONS: None. PERTINENT PROCEDURES: 1. Left lower extremity Doppler showed acute nonocclusive DVT in the left lower extremity. 2. V/Q scan showed low probability for PE. DISCHARGE DIAGNOSES: 1. Left lower extremity deep venous thrombosis. The patient will continue on his home Eliquis. He had recently been taken off his Eliquis, I believe, for his knee surgery. He had been at rehab, and he will continue on his home Eliquis twice daily. 2. Acute on chronic renal failure, currently around her historical baseline at 1.5 on the day of admission. 3. Diabetes mellitus. He will continue diabetic diet. Continue his home medications. 4. Known coronary artery disease. No chest pain. 5. Hypertension. Resume home medications. 6. Atrial fibrillation, rate control. 7. Recent left knee surgery 1 week ago. His brandy will be taken out today. He is to follow up with his orthopedist, Dr. Johnson. DISPOSITION: He will be discharged home with home health and physical therapy 5 days a week. HOSPITAL COURSE: Briefly, Mr. Vila is a 77-year-old male who carries a past medical history of known coronary artery disease, hypertension, hyperlipidemia, [place], atrial fibrillation, status post pacemaker and defibrillator, chronic reflux, restless leg syndrome, history of CVA, diabetes, CABG, coronary stenting, who reports having a left knee surgery approximately a week ago. He had been off his Eliquis. He was not restarted when he went to rehab. He presented to the hospital with increased shortness of breath, swelling in his left lower extremity that continued to worsen. He also reported being tired and fatigued with bradycardic episodes. However, he does have a pacemaker that was placed in 07/2018. He underwent a V/Q scan that was negative for PE. He did have a left lower extremity Doppler that showed DVT. He was initiated back on his home Eliquis. He has had an uneventful hospital course. The patient was going to be set up to go back to rehab. However, after speaking with son and family, they will be discharged home with [facility] and 5 days of physical therapy. DISCHARGE VITAL SIGNS: Temperature is 98.6 degrees, heart rate 56, respirations 18, blood pressure 143/67, O2 is 100% on room air. DISCHARGE DIET: Diabetic. DISCHARGE MEDICATIONS: 1. Eliquis 5 mg p.o. b.i.d. 2. Aspirin 81 mg p.o. daily. 3. Atenolol 100 mg p.o. daily. 4. Lantus 25 units subcutaneously every a.m. 5. Glucophage XR 500 mg p.o. daily. 6. Nifedipine 60 mg p.o. daily. 7. Requip 5 mg p.o. daily. 8. Tylenol 650 mg p.o. every 6 hours. 9. OxyIR 5 mg p.o. every 4 hours p.r.n. pain. FOLLOWUP: Mr. Vila is being discharged home with [facility] and physical therapy 5 days a week. This has been set up by [employer]. They have chosen not to go back to rehab. They are going to take out his brandy before his discharge. He will need to follow up with his orthopedist, Dr. Johnson, as well as obtain a primary care physician. He can return to the ED or call 911 for any worsening of symptoms. Dictated by MELODY Infante for Jesus Haskins MD cc: MD Chauncey Kelly MD
--- NOTE | 2018-11-12 02:44 | DISCHARGE SUMMARY ---
ADMISSION DATE: 11/10/2018 DISCHARGE DATE: 11/11/2018 ADDENDUM: Patient seen and examined by myself. Full note dictated and discussed with nurse practitioner. Patient presented to the hospital, subsequently diagnosed with left lower extremity deep venous thrombosis. He had been off his Eliquis after his knee surgery. We will restart this and he is tolerating very well. Certainly would have preferred patient to go to rehab. However, the family has decided to go home with Home Health. We will continue Eliquis as well as his other home medications. Please see full note. cc: Jesus Haskins MD
== END 2018-11-11 14:40 | disposition home health service (06) ==
LOC: P.ED 13:30 → P.MEDSURG 13:30
PROVIDERS: ATTEND Family Medicine
CPT/HCPCS: 71020; 71046; 78582; 80048; 80053; 82550; 83735; 84484; 85025; 85027; 85610; 85730; 93005; 93971; 96374; 99285; 99291; A9270; A9539; A9540; J1644; Q9967

== ENCOUNTER 2019-12-03 13:15 | Inpatient (IN) ==
[2019-12-03 14:31] LABS: BASO# 0.02 X1000 (0.0-0.2); BASO% 0.2 % (0.0-0.8); EOS# 0.01 X1000 (0.0-0.7); EOS% 0.1 % (0.0-10.0); HEMATOCRIT 38.8 % (42.0-52.0); HEMOGLOBIN 11.8 g/dL (14.0-18.0); LYMPH# 1.04 X1000 (1.2-3.4); LYMPH% 10.7 % (20.5-51.1); MCH 25.8 PG (27-31); MCHC 30.4 g/dL (33-37); MCV 84.9 FL (81-99); MONO# 0.48 X1000 (0.11-0.59); MONO% 4.9 % (1.7-9.3); MPV 11.2 FL (7.4-10.4); NEUT# 8.16 X1000 (1.4-6.5); NEUT% 84.1 % (42.2-75.2); PLT 293 X1000 (130-400); RBC 4.57 XMIL (4.7-6.1); WBC 9.71 X1000 (4.8-10.8)
--- NOTE | 2019-12-03 14:33 | Diag Imaging Result Doc PS360 ---
EXAM: CHEST-PORTABLE 12/03/2019 HISTORY: short of breath TECHNIQUE: AP portable upright at 1421 COMMENT: There is cardiomegaly. There is increased pulmonary vascularity. There is increased interstitial opacity, and in comparison with 11/23/2018 this is new. IMPRESSION: Pulmonary edema. Electronically signed by Aamir Leahy 12/03/2019 2:30 PM
[2019-12-03 14:42] LABS: ALB/GLOB RATIO 1.2; ALBUMIN 3.6 g/dL (3.5-5.0); CREATININE 1.9 mg/dL (0.7-1.2); POTASSIUM 4.6 mmol/L (3.5-5.1); TOTAL BILIRUBIN 0.54 mg/dL (0.20-1.00); TOTAL PROTEIN 6.6 g/dL (6.3-8.3)
--- NOTE | 2019-12-03 15:37 | EKG Report ---
Test Performed on : 12/03/2019 1:45:56 PM Test Reason : SOB Blood Pressure : / mmHG Vent. Rate : 070 BPM Atrial Rate : 066 BPM P-R Int : 000 ms QRS Dur : 164 ms QT Int : 484 ms P-R-T Axes : 000 -61 131 degrees QTc Int : 522 ms Ventricular-paced rhythm Abnormal ECG When compared with ECG of 10-NOV-2018 13:36, Electronic ventricular pacemaker has replaced Atrial fibrillation. Unconfirmed Result
[2019-12-03] MEDS ORDERED: LASIX IV ONE (15:42)
[2019-12-03] MEDS ORDERED: ROCEPHIN 1 GM in NS 50 ML IV ONE (15:43)
--- NOTE | 2019-12-03 16:08 | PROVIDER DOCUMENTATION ---
This chart was entered by Lanette Fulton Scribe, acting as scribe for Ronel Tatum MD. HPI-Respiratory General - General Chief Complaint: Shortness of Breath Stated Complaint: COUGHING A LOT,I CANT BREATHE Time Seen by Provider: 12/03/19 13:45 Source: patient Allergies/Adverse Reactions: Patient Allergies Allergy/AdvReac Type Severity Reaction Status Date / Time simvastatin [From Zocor] Allergy Mild HIVES Verified 12/03/19 15:44 Home Medications: Home Medication List Medication Instructions Recorded Confirmed Last Taken Type Nifedipine [Nifedical Xl] 60 mg PO DAILY 09/29/16 12/03/19 10/27/18 08:00 History Metformin E.r. [Glucophage Xr] 500 mg PO DAILY 08/08/17 11/17/18 10/27/18 08:00 History Insulin Glargine [Lantus] 25 unit SUBQ QAM 10/19/18 11/17/18 10/27/18 08:00 History Aspirin 81 mg PO DAILY 11/10/18 12/03/19 Unknown History Ropinirole HCl 4 mg PO DAILY 11/10/18 12/03/19 Unknown History Acetaminophen [Tylenol] 650 mg PO Q6H PRN PRN tablet 11/11/18 12/03/19 Unknown Rx Celecoxib [Celebrex] 200 mg PO DAILY 12/03/19 12/03/19 Unknown History Lisinopril 20 mg PO DAILY 12/03/19 12/03/19 Unknown History Prasugrel [Effient] 10 mg PO DAILY 12/03/19 12/03/19 Unknown History Ranolazine E.r. [Ranexa] 500 mg PO BID 12/03/19 12/03/19 Unknown History Venlafaxine HCl 50 mg PO DAILY 12/03/19 12/03/19 Unknown History - History of Present Illness-Resp Nature of Presenting Problem: 79 yowm presents to the ed after visiting [facility] with [facility]. pt come to ed and has pursedlip breathing and once pt was placed on 4LPM via mc O2 sat came up to 98%. pt is resting in bed Quality of Pain: reports: fullness Severity in ED: reports: moderate Onset/Duration: reports: gradual Timing: reports: still present Context: reports: recent URI Cough Quality/Degree: reports: mild, dry cough Episode Frequency: occasional episodes Current Respiratory Medication Therapy: Initiated see nurses note Modifying Factors: improves with: oxygen, sitting upright. worse with: exertion Associated Symptoms: reports: cough, shortness of breath. denies: fever/chills, wheezing Similar Symptoms Previously?: No Recently seen or treated by another doctor?: Yes (went to [facility]) Review of Systems - Adult - REVIEW OF SYSTEMS - ADULT Constitutional: denies: chills, fever Eyes: reports: no symptoms reported Ears, Nose, Mouth & Throat: reports: no symptoms reported Cardiovascular: denies: chest pain, palpitations Respiratory: reports: see HPI, cough, shortness of breath, wheezing Gastrointestinal: denies: abdominal pain, diarrhea, nausea, vomiting Genitourinary: reports: no symptoms reported Musculoskeletal: denies: back pain, neck pain Integumentary: reports: no symptoms reported Neurological: reports: no symptoms reported Psychiatric: reports: no symptoms reported Endocrine: reports: no symptoms reported Hematologic/Lymphatic: reports: no symptoms reported Allergic/Immunologic: reports: no symptoms reported All Other Systems: Reviewed and Negative Past History - Adult - PAST MEDICAL HISTORY-ADULT Review of Records: reports: Old Records Reviewed, Nursing Assessment Review, Medications Reviewed, Social history reviewed & non-contributory. Major Childhood Illnesses: reports: denies history Cardiovascular: reports: cardiac disease (blockage), CAD, HTN, hyperlipidemia, [place], pacemaker Respiratory: reports: denies history Gastrointestinal: reports: GERD Genitourinary: reports: denies history Musculoskeletal: reports: other (restless leg) Neurological: reports: CVA Psychiatric: reports: denies history Endocrine/Immune: reports: Diabetes Diabetes Type: Type 2 Other Conditions: reports: denies history - PRIOR SURGERIES/PROCEDURES Surgical/Procedure History: reports: recent surgery (1 week prior), CABG, cardiac stent, pacemaker, joint replacement - IMMUNIZATION STATUS Childhood Immunizations: See Nurse Assessment Flu Vaccine: See Nurse Assessment - FAMILY HISTORY Family History: reviewed, not pertinent - SOCIAL HISTORY Smoking: quit greater than 1 year Substance Use: denies Alcohol Use Frequency: never Living Situation: family Physical Exam-General - PHYSICAL EXAM-ADULT Initial Vital Signs Reviewed: Yes - CONSTITUTIONAL General Appearance: alert, mild distress, obese - EYES Eyes: PERRL/EOMI, pink conjunctivae - HEAD, EARS, NOSE, MOUTH & THROAT HENMT: moist mucous membranes - NECK Neck: non-tender, full range of motion, normal inspection - RESPIRATORY Respiratory: respiratory distress, decreased breath sounds, rhonchi, increased rate (26) - CARDIOVASCULAR Cardiovascular: normal peripheral pulses, regular rate, rhythm - CHEST (BREASTS) Chest/Breast: deferred - GASTROINTESTINAL (ABDOMEN) Abdominal Exam: normal bowel sounds, non tender, soft - GENITOURINARY Male Genitalia: deferred Rectal Exam: deferred Hemoccult Exam: deferred - LYMPHATIC Lymphatic: no adenopathy - MUSCULOSKELETAL Back Exam: normal inspection, no CVA tenderness, no vertebral tenderness Extremity: normal range of motion, non-tender, normal gait, normal inspection - SKIN Integumentary: normal color, normal turgor, diaphoresis - NEUROLOGIC Neurologic: grossly normal - PSYCHIATRIC Psych/Mental Status: normal mood/affect, normal thought content, normal thought process, oriented x 3 Progress - PLAN OF CARE/RESULTS Progress/Plan/Lab Results: Vital Signs - 8 hr 12/03/19 13:37 12/03/19 13:46 12/03/19 14:30 Temperature 98.2 F Pulse Rate 70 72 70 Respiratory Rate 26 H 24 24 Blood Pressure 148/94 150/96 149/113 O2 Sat by Pulse Oximetry 96 96 96 12/03/19 15:00 Temperature Pulse Rate 71 Respiratory Rate 22 Blood Pressure 156/107 O2 Sat by Pulse Oximetry 96 Laboratory Results - last 24 hr 12/03/19 12/03/19 12/03/19 13:55 13:55 13:55 WBC RBC Hgb Hct MCV MCH MCHC RDW Std Deviation Plt Count MPV Neut % (Auto) Lymph % (Auto) [place] % (Auto) Eos % (Auto) Baso % (Auto) Neut # (Auto) Lymph # (Auto) [place] # (Auto) Eos # (Auto) Baso # (Auto) Sodium 146 H Potassium 4.6 Chloride 109 H Carbon Dioxide 24 L Anion Gap 13 BUN 40 H Creatinine 1.9 H Estimated GFR/1.73 m2 35 BUN/Creatinine Ratio 21 Glucose 140 H Calculated Osmolality 303 Calcium 9.0 Total Bilirubin 0.54 AST 19 ALT 19 Alkaline Phosphatase 92 Troponin T High Sens 36 H Wtc-[id number]-Bmvoznurfyq Pept Total Protein 6.6 Albumin 3.6 Globulin 3.0 Albumin/Globulin Ratio 1.2 Amylase 47 Lipase 9 L Plasma Lactate 3.1 H 12/03/19 12/03/19 13:55 13:55 WBC 9.71 RBC 4.57 L Hgb 11.8 L Hct 38.8 L MCV 84.9 MCH 25.8 L MCHC 30.4 L RDW Std Deviation 15.0 H Plt Count 293 MPV 11.2 H Neut % (Auto) 84.1 H Lymph % (Auto) 10.7 L [place] % (Auto) 4.9 Eos % (Auto) 0.1 Baso % (Auto) 0.2 Neut # (Auto) 8.16 H Lymph # (Auto) 1.04 L [place] # (Auto) 0.48 Eos # (Auto) 0.01 Baso # (Auto) 0.02 Sodium Potassium Chloride Carbon Dioxide Anion Gap BUN Creatinine Estimated GFR/1.73 m2 BUN/Creatinine Ratio Glucose Calculated Osmolality Calcium Total Bilirubin AST ALT Alkaline Phosphatase Troponin T High Sens [id number]-A-Kxcnvpmirsh Pept > 90793 H Total Protein Albumin Globulin Albumin/Globulin Ratio Amylase Lipase Plasma Lactate Orders Category Date Time Status Cardiac Monitoring NOW Care 12/03/19 15:21 Active NEWS Score 2-4:Order NEWS Lactate Series NOW Care 12/03/19 13:39 Active Notify Provider of NEWS Score NOW Care 12/03/19 15:21 Active Saline Loc DIRECTED Care 12/03/19 13:46 Active NPO Diet 12/03/19 13:46 Active CHEST-PORTABLE [RAD] Stat Exams 12/03/19 13:46 Completed AMYLASE [CHEM] Stat Lab 12/03/19 13:55 Completed BNP [PRO B-NATRIURETIC PEPTIDE] Stat Lab 12/03/19 13:55 Completed CBC WITH ELECTRONIC DIFF [HEME] Stat Lab 12/03/19 13:55 Completed COMPREHENSIVE METABOLIC PANEL [CHEM] Stat Lab 12/03/19 13:55 Completed LACTATE, PLASMA [CHEM] Lab 12/03/19 16:45 Uncollected LACTATE, PLASMA [CHEM] Lab 12/03/19 19:45 Uncollected LACTATE, PLASMA [CHEM] Q3H Lab 12/03/19 13:55 Completed LIPASE [CHEM] Stat Lab 12/03/19 13:55 Completed TROPONIN T HIGH SENSITIVITY Stat Lab 12/03/19 13:55 Completed CefTRIAXONE [Rocephin] 1 gm Med 12/03/19 15:43 Discontinued 0.9% Sodium Chloride Inj [Ns] 50 ml IV NOW Furosemide [Lasix] Med 12/03/19 15:42 Discontinued 40 mg IV NOW ONE O2 Per Protocol Stat Oth 12/03/19 15:21 Active EKG [EKG] Stat Ther 12/03/19 13:45 Draft Result Diagrams: 12/03/19 13:55 12/03/19 13:55 - EKG 1 Time of EKG reading by physician:: 13:45 EKG Read and Signed by:: Ronel Tatum EKG Interpretation (*Must complete 3 of following elements*): Abnormal Rate: 70 Rhythm: ventricular paced rhythm Mccoll: normal QRS: normal AL Interval: normal ST Wave: normal - XRAY 1 XRAY: Bilateral XRAY Study: Chest Impression: See EMR Report ( IMPRESSION: Pulmonary edema. Electronically signed by Aamir Leahy 12/03/2019 2:30 PM) - CONSULTS/PCP/HOSPITALIST Notification #1 *Consult/PCP/Hospitalist*: AXEL Time Discussed: 16:08 Consult Disposition: Will see in ED, Admit (admit to Dr Lutz) Departure - Departure Date of Disposition Decision: 12/03/19 Time of Disposition Decision: 16:07 DIAGNOSIS: Pulmonary edema Qualifiers: Chronicity: acute Qualified Code(s): J81.0 - Acute pulmonary edema CHF (congestive heart failure) Qualifiers: Heart failure type: unspecified Heart failure chronicity: unspecified Qualified Code(s): I50.9 - Heart failure, unspecified Disposition: ADMITTED INPATIENT 09 Certified Medical Emergency: Emergent Condition: Good Referrals and Follow-Ups: Becky Redman MD [Primary Care Provider] - - Critical Care Note This patient required my direct & personal management of CC.: No Attestation - Physician/ ISAIAH Attestation Patient care was provided by Advanced Practice Provider:: No The physician spent face to face time with patient:: Yes Advanced Practice Provider documentation review:: Supervising physician onsite and consulted in the evaluation and care of this patient. The physician did have a face to face encounter with the patient. This chart was documented by the indicated scribe, (Lanette Fulton Scribe) and accurately reflects the services I performed and decisions made by , Ronel Tatum MD, as attested by the provider's signature.
--- NOTE | 2019-12-03 17:48 | HISTORY AND PHYSICAL ---
PRIMARY CARE PHYSICIAN: Dr. Redman. CHIEF COMPLAINT: Shortness of breath and cough for the past 3 days that has progressively worsened. HISTORY OF PRESENTING ILLNESS: This is a 79-year-old male who presents to [facility] after he had visited [facility] for shortness of breath, was sent to the ED with pursed lip breathing, was placed on 4 L via nasal cannula and O2 saturation came up to 98%. He states that he has had shortness of breath and cough for the past 3 days that has progressively worsened. Workup showed a proBNP of greater than 35,000. He does have a history of congestive heart failure. Last known echocardiogram was in 2016 that showed an ejection fraction of 60%. His chest x-ray today showed pulmonary edema so he will be admitted for further evaluation and treatment. PAST MEDICAL HISTORY: Diabetes type 2, coronary artery disease, congestive heart failure, hypertension, hyperlipidemia, chronic kidney disease stage 3, CVA, obstructive sleep apnea and rheumatoid arthritis. PAST SURGICAL HISTORY: CABG, heart stents x2, cataract and left knee x2. FAMILY HISTORY: Reviewed and noncontributory. SOCIAL HISTORY: Currently lives with family. Denies any tobacco, alcohol or illicit drug use. ALLERGIES: Simvastatin. HOME MEDICATIONS: A current list will need to be obtained, reconciled, reviewed and restarted as appropriate, place an order for nursing to update and confirm home medications. LABORATORY DATA: Showed a white blood cell count of 9.71, hemoglobin 11.8, hematocrit 38.8, platelets 293,000. Sodium 146, potassium 4.6, chloride 109, CO2 24, BUN of 40, creatinine 1.9, glucose 140. Troponin T high-sensitivity of 36. ProBNP of greater than 35,000. Plasma lactate of 3.1. Chest x-ray showed pulmonary edema. EKG with ventricular paced rhythm at 70. REVIEW OF SYSTEMS: He denied any fever, chills, blurred vision, dizziness, chest pain. He has had shortness of breath, nonproductive cough. Denied any abdominal pain, constipation, diarrhea, burning or hurting with urination. PHYSICAL EXAMINATION: On arrival had a temperature of 98.2 degrees, pulse 70, respirations 26, blood pressure 148/94, saturating 96% on room air. GENERAL: This is a 79-year-old male who is sitting up in the bed, answers questions appropriately. HEENT: Normocephalic, atraumatic. Normal ENT inspection. Oropharynx and nares are clear. Pupils are equal, round, reactive to light, accommodation. Extraocular movements are intact. NECK: Normal inspection, normal range of motion. LUNGS: With wheezing bilaterally, pursed lip breathing noted, accessory muscle use. O2 via nasal cannula currently in use. ABDOMEN: Soft, nontender, nondistended. Bowel sounds are present x4 quadrants. MUSCULOSKELETAL: 5/5 strength x4 extremities. EXTREMITIES: Noted to have 1 to 2+ pitting edema bilateral lower extremities. NEUROLOGICAL: The cranial nerves 2-12 appear grossly intact. ASSESSMENT: 1. An acute congestive heart failure exacerbation. 3. Diabetes type 2. 4. Hypertension. PLAN: He will be admitted to the medical unit placed on telemetry, O2 per protocol, need to update and confirm home medications. Place on a healthy heart diet. Will check an echocardiogram in the a.m. Place on hydralazine 10 mg IV q.4 hours p.r.n. for systolic greater than 160, diastolic greater than 100 until we can verify home medications, Lasix 40 mg IV q.12, Lovenox 40 mg subcu q.24 for DVT prophylaxis, plasma lactate serial and further orders after seen by attending. Dictated by MELODY Kumar for Lenny Lutz MD cc: MD Lenny Butts MD I agree with most components of history, physical, assessment and plan. A separate addendum has been dictated. [facility] MED[facility] CENTERBishnu
[2019-12-03] MEDS ORDERED: TYLENOL PO PRN ×2 (18:38→18:49)
[2019-12-03] MEDS ORDERED: APRESOLINE IV PRN (18:40)
[2019-12-03] MEDS ORDERED: ZOFRAN IV PRN (18:49)
[2019-12-03] MEDS ORDERED: ASPIRIN PO STA (19:12)
[2019-12-03] MEDS: LASIX IV SCH (19:12)
[2019-12-03] MEDS: LOVENOX SUBQ SCH (19:13)
[2019-12-03] MEDS ORDERED: ZAROXOLYN PO ONE (19:16)
[2019-12-03] MEDS: DUONEB (A & A) INH SCH ×2 (19:30→23:11)
[2019-12-03 19:52] LABS: INR 1.28; PROTIME 16.2 Seconds (11.0-16.0)
[2019-12-03 20:03] LABS: URINE SOURCE CATH
[2019-12-03 20:09] LABS: BILIRUBIN URINE NEGATIVE (NEGATIVE); BLOOD URINE NEGATIVE (NEGATIVE); COLOR YELLOW; GLUCOSE URINE NEGATIVE (NEGATIVE); KETONE URINE NEGATIVE (NEGATIVE); LEUKOCYTES URINE NEGATIVE (NEGATIVE); NITRITE URINE NEGATIVE (NEGATIVE); PH URINE 5.5; PROTEIN URINE TRACE mg/dL (NEGATIVE); SP GRAVITY URINE 1.012; TURBIDITY URINE CLEAR (CLEAR); UR EPITHELIAL CELLS <10 /HPF (<10); URINE BACTERIA NEGATIVE /HPF; URINE RBC <10 /HPF (<10); URINE WBC <10 /HPF (<10); UROBILINOGEN URINE NORMAL (NORMAL)
[2019-12-03] MEDS: SOLU-MEDROL IV SCH (20:11)
--- NOTE | 2019-12-03 20:22 | HISTORY AND PHYSICAL ---
ADDENDUM: This is an addendum to the History and Physical dictated by the nurse practitioner. I agree with most components of history, physical, assessment and plan. In brief, Mr. Zeeshan Vila is a 79-year-old man, with past medical history of coronary artery disease requiring CABG and PCI stent, status post AICD, insulin- dependent diabetes mellitus, chronic kidney disease stage 3, who comes in with chief complaint of shortness of breath of about 12 hours duration. The patient states he was in his usual state of health until this morning when he suddenly woke up with shortness of breath. He had also started noticing increasing lower extremity edema. He had gone to [facility] where he was found to be short of breath, so he was sent to the emergency room. In the emergency room, he was found to be in respiratory distress. On arrival, his temperature was 98.2 degrees, his pulse was 70, respiratory rate 26, and blood pressure 148/94. He was saturating 96% on room air, but appeared in a lot of distress. He was put on nasal cannula and hospitalist team was consulted for further management as he was found to have elevated proBNP of more than 35,000, hypernatremia, hyperchloremia, and chest x-ray suggestive of pulmonary vascular congestion with acute pulmonary edema. At the time of my evaluation, Mr. Vila states he is still feeling short of breath, though slightly better. He also states he has been diagnosed with COPD, but he denies any tobacco use or dust or smoke exposure. CURRENT VITAL SIGNS: Temperature of 97.7 degrees, pulse 71, respiratory 23, blood pressure 145/112. He is saturating 99% on 5 L nasal cannula. PHYSICAL EXAMINATION: GENERAL: He is in mild to moderate distress because of shortness of breath. ORAL CAVITY: Moist. LUNGS: He has significantly decreased air movement in bilateral lung miller with end-expiratory wheezes diffusely. He also has inspiratory crackles in bilateral infrascapular regions. HEART: S1, S2 normal. No murmur, rub, or gallop. Appears regular. ABDOMEN: Soft. NECK: He has remarkable jugular venous distention. EXTREMITIES: Bilateral lower extremity edema is present. NEUROLOGIC: He has alert and oriented x3. LABS: Suggestive of WBC of 9.7, hemoglobin 11.8, platelet of 293,000. Sodium of 146, chloride 109, BUN 40, creatinine 1.9. His proBNP is more than 35,000. His lactic acidosis is improving from 3.1. No microbiological data. IMAGING: Chest x-ray is suggestive of pulmonary edema. EKG has ventricularly paced rhythm. ASSESSMENT AND PLAN: 1. Acute hypoxic respiratory failure. 2. Acute pulmonary edema due to acute congestive heart failure exacerbation. 3. Acute chronic obstructive pulmonary disease exacerbation without known smoking history. 4. History of coronary artery disease, status post coronary artery bypass grafting in 2015, as well as multiple stents in 2008, as well as status post automatic implantable cardiac defibrillator in 2019. 5. History of insulin-dependent diabetes mellitus type 2. 6. History of chronic kidney disease stage 3. 7. Essential hypertension. 8. Hyperlipidemia. PLAN: 1. Start patient on inhaled bronchodilators, intravenous steroids, intravenous Lasix. 2. Considering his respiratory distress and his and inability to complete his sentences, I will start him on BiPAP. If he is not able to tolerate BiPAP, I would consider switching him to high-flow nasal cannula. 3. I will insert [place] catheter for close input and output monitoring. 4. Start patient on sliding scale insulin along with his Lantus. In future, I will consider adding canagliflozin to his regimen. 5. I will give patient a stat dose of aspirin, trend troponins, and follow up with D-dimer. I will keep him on enoxaparin for deep venous thrombosis prophylaxis and continue his home aspirin and prasugrel. 6. He is listed to be allergic to statin. He is not listed to be taking any beta blockers. In future, I will consider adding aldosterone antagonist. DISPOSITION: I will transfer patient to [facility]. 40 minutes have been spent in taking care of this patient. Plan of care extensively discussed with him. His questions have been answered. cc: Lenny Lutz MD MTDD
[2019-12-03 20:49] LABS: PTT 28.7 Seconds (22.3-41.8)
[2019-12-03] MEDS: HUMALOG SUBQ SCH (21:49)
[2019-12-03] MEDS: RANEXA PO SCH (21:50)
[2019-12-03] MEDS: LANTUS INSULIN SUBQ SCH (21:51)
[2019-12-03] MEDS: REQUIP PO SCH (22:07)
[2019-12-04] MEDS: DUONEB (A & A) INH SCH ×6 (03:04→22:44)
[2019-12-04] MEDS: SOLU-MEDROL IV SCH ×3 (04:17→20:26)
[2019-12-04] MEDS: LASIX IV SCH ×2 (04:17→16:43)
[2019-12-04 06:25] LABS: HEMATOCRIT 42.2 % (42.0-52.0); HEMOGLOBIN 12.5 g/dL (14.0-18.0); IMM GRAN# 0.03 X1000 (0.0-0.04); IMM GRAN% 0.4 % (0.0-0.5); LYMPH# 0.68 X1000 (1.2-3.4); LYMPH% 8.1 % (20.5-51.1); MCH 25.3 PG (27-31); MCHC 29.6 g/dL (33-37); MCV 85.3 FL (81-99); MONO# 0.16 X1000 (0.11-0.59); MONO% 1.9 % (1.7-9.3); MPV 11.4 FL (7.4-10.4); NEUT# 7.52 X1000 (1.4-6.5); NEUT% 89.6 % (42.2-75.2); PLT 269 X1000 (130-400); RBC 4.95 XMIL (4.7-6.1); RDW 14.9 % (11.5-14.5); WBC 8.39 X1000 (4.8-10.8)
[2019-12-04 06:48] LABS: CALCIUM 9.3 mg/dL (8.8-10.2); CREATININE 1.9 mg/dL (0.7-1.2); POTASSIUM 4.3 mmol/L (3.5-5.1)
[2019-12-04] MEDS: HUMALOG SUBQ SCH ×5 (07:09→20:42)
[2019-12-04] MEDS: EFFEXOR PO SCH (08:35)
[2019-12-04] MEDS: EFFIENT PO SCH (08:35)
[2019-12-04] MEDS: ASPIRIN PO SCH (08:35)
[2019-12-04] MEDS: RANEXA PO SCH ×2 (08:35→20:26)
[2019-12-04] MEDS: PRINIVIL PO SCH (08:35)
[2019-12-04 08:43] LABS: BANDS 2 % (0-1); HYPOCHROM 1+; LYMPHS 8 % (21-51); SEGS 90 % (42-75)
[2019-12-04 08:44] LABS: POIKILOCYTOSIS 1+
--- NOTE | 2019-12-04 09:28 | PROGRESS NOTE ---
DATE: 12/04/2019 INTERVAL HISTORY: The patient was started on BiPAP and he was saturating well. He made almost 4 L of urine. His troponins were showing flat trend. SUBJECTIVE: Mr. Vila is on BiPAP at the time of my evaluation and is feeling slightly better than yesterday. He denies new complaints except that he is still feeling short of breath and has a cough. REVIEW OF SYSTEMS: Positive for shortness of breath. Positive for cough which is baseline. Negative for nausea, vomiting, or abdominal pain. VITALS: Temperature 98.2 degrees, pulse 70, respiratory rate 24, blood pressure 149/110, saturating 100% on BiPAP. PHYSICAL EXAMINATION: Not in acute distress. I could not examine the oral cavity. S1, S2 normal. No murmur, rub, or gallop. Air entry bilaterally equal. No wheeze or rhonchi. There is inspiratory crackles in infrascapular region which is improved.Abdomen: Obese, soft, nontender. Active bowel sounds. He has jugular venous distention, however, considering his thick skin in the neck it was difficult to appreciate. His lower extremity edema has significantly improved, though he still has edema affecting bilateral lower extremities, more pronounced on the left than on the right. He is alert and oriented x3. Input and output suggests 4.1 L of urine. LABS: Suggestive of WBC 8.3, hemoglobin 12.5, platelets 269,000. BUN 39, creatinine 1.9, blood glucose 149. Microbiology, no new data. ASSESSMENT AND PLAN: 1. Acute hypoxic respiratory failure. I will continue to cycle BiPAP and nasal cannula as tolerated. 2. Acute pulmonary edema due to acute congestive heart failure exacerbation. Previously, he had ejection fraction of 60% in 2016. Troponins showing flat trend and he did not have chest pain. I will follow up with repeat echocardiogram. I will consider Cardiology evaluation. 3. Acute chronic obstructive pulmonary disease exacerbation without known smoking history. I will get further details once his respiratory status improves, if he has prior asthma. Continue inhaled bronchodilators and intravenous methylprednisolone. 4. History of coronary artery disease status post coronary artery bypass grafting in 2015, multiple stents in 2018, status post automatic implantable cardioverter defibrillator in 2019. Continue home aspirin, prasugrel, ranolazine and lisinopril. He is listed to be allergic to simvastatin. He is not listed to be taking any beta patt. 5. Elevated D-dimer. This could be in the setting of current hypoxic respiratory failure. My suspicion for pulmonary embolism is less at the moment. However, I will get a lower extremity ultrasound to rule out left lower extremity DVT. Continue prophylactic dose of enoxaparin. 6. History of insulin-dependent diabetes mellitus type 2. I will continue him on his home dose of insulin as well as sliding scale insulin. I will consider adding canagliflozin in the future. 7. Essential hypertension, chronic kidney disease stage 3 and hyperlipidemia are currently stable. 8. Disposition. Monitor patient inside the PVC unit. Plan of care discussed with him. His questions have been answered. 35 minutes have been spent in taking care him. I discussed the plan with him and his nurse. I also called his nurse in the afternoon time. I have been informed that he has been comfortable on nasal cannula now. cc: Lenny Lutz MD MTDD
[2019-12-04] MEDS: LOVENOX SUBQ SCH (17:09)
[2019-12-04] MEDS: REQUIP PO SCH (20:26)
[2019-12-04] MEDS: LANTUS INSULIN SUBQ SCH (20:27)
[2019-12-05] MEDS: DUONEB (A & A) INH SCH ×6 (02:40→23:22)
[2019-12-05] MEDS: LASIX IV SCH (05:01)
[2019-12-05] MEDS: SOLU-MEDROL IV SCH (05:01)
[2019-12-05] MEDS: HUMALOG SUBQ SCH ×4 (06:02→21:35)
[2019-12-05 06:08] LABS: CALCIUM 9.4 mg/dL (8.8-10.2); CREATININE 2.1 mg/dL (0.7-1.2); POTASSIUM 4.3 mmol/L (3.5-5.1)
[2019-12-05] MEDS: PRINIVIL PO SCH (09:08)
[2019-12-05] MEDS: EFFEXOR PO SCH (09:08)
[2019-12-05] MEDS: ASPIRIN PO SCH (09:08)
[2019-12-05] MEDS: EFFIENT PO SCH (09:08)
[2019-12-05] MEDS: RANEXA PO SCH ×2 (09:08→21:35)
[2019-12-05] MEDS ORDERED: PRILOSEC PO ONE (10:07)
--- NOTE | 2019-12-05 10:53 | PROGRESS NOTE ---
DATE: 12/05/2019 INTERVAL HISTORY: No acute events overnight. The patient tolerated nasal cannula well and has been saturating 99% on 4 L nasal cannula. SUBJECTIVE: Patient states he does have congestive heart failure. However, he has been a poor historian. Initially, he told me he did not remember the name of his heart doctor and later on he could tell me that he was seeing a loan services professional in [facility]. He states he had seen him about 3 weeks ago and had talked to him about congestive heart failure. He could not really tell me if he was taking any water pill at home. However, later on, he told me that he is supposed to be taking Lasix could not provide me any details. REVIEW OF SYSTEMS: Positive for mild shortness of breath. Negative for lower extremity edema. Negative for nausea, vomiting. VITALS: Temperature of 97.9 degrees, pulse 70, respiratory rate 24, blood pressure 130/70, saturating 92% on room air. PHYSICAL EXAMINATION: Obese, not in acute distress.HEENT: Oral cavity is moist. I could not appreciate any jugular venous distention. Lungs: Air entry bilaterally equal. No wheeze or rhonchi. Mild crackles infrascapular region. Cardiovascular: S1, S2 normal. No murmur or gallop. Regular rate and rhythm. Abdomen: Soft nontender. Active bowel sounds. Extremities: He has left lower extremity swelling more than the right, but they have significantly gone down. He has bilateral knee scar of previous knee surgeries. INPUT AND OUTPUT: Input and output suggests -2 0.6 L yesterday -700 mL so far today. LABS: No CBC today. BMP suggestive of a BUN of 53, creatinine of 2.1. His blood glucose was 144. No microbiological or new imaging data. Echocardiogram was canceled yesterday since the patient had an echocardiogram done at [facility], which had ejection fraction of 25%. ASSESSMENT AND PLAN: 1. Acute hypoxic respiratory failure due to acute pulmonary edema due to acute systolic congestive heart failure exacerbation on likely chronic systolic congestive heart failure with ejection fraction of 25% in September 2019. Troponin have been showing flat trend. This could be in the setting of dietary or medication indiscretion. I will continue him on oxygen as tolerated to keep saturation more than 92% and will wean down as tolerated. 2. Suspected acute chronic obstructive pulmonary disease exacerbation without known smoking history. I will get records from his loan services professional as well as a regular physician's office though patient on admission denied any prior history of smoking. Considering absence of wheeze on examination I will decrease methylprednisolone dose and continue him on inhaled bronchodilators. 3. History of coronary artery disease status post coronary artery bypass grafting in 2015, multiple stent in 2018, automatic implantable cardioverter defibrillator in 2019. Continue home aspirin, prasugrel, ranolazine, lisinopril and start him on oral furosemide starting tomorrow. He is not listed to be taking any beta patt. He was listed to be allergic to statin. 4. Elevated D-dimer. The suspicion of pulmonary embolism is less considering left lower extremity. I will follow up with ultrasound lower extremity. I have not been informed of the results, so likely there is no deep venous thrombosis. 5. History of insulin-dependent diabetes mellitus type 2. Continue insulin, glargine sliding scale insulin. His blood sugars have been within acceptable range. 6. Essential hypertension, chronic kidney disease stage 3 and hyperlipidemia is stable. DISPOSITION: I will monitor patient in PVC and would anticipate discharge in next 24 to 48 hours. Plan of care discussed with Mr. Vila. His questions have been satisfactorily answered. I am awaiting records from his loan services professional, regular physician's offices. cc: Lenny Lutz MD
[2019-12-05] MEDS: LOVENOX SUBQ SCH (17:22)
[2019-12-05] MEDS: LANTUS INSULIN SUBQ SCH (21:35)
[2019-12-05] MEDS: REQUIP PO SCH (21:35)
[2019-12-06] MEDS: DUONEB (A & A) INH SCH ×3 (03:36→11:48)
[2019-12-06] MEDS: HUMALOG SUBQ SCH ×2 (06:53→11:19)
[2019-12-06] MEDS ORDERED: PRILOSEC PO SCH (07:00)
[2019-12-06 07:22] LABS: CALCIUM 9.3 mg/dL (8.8-10.2); CREATININE 2.5 mg/dL (0.7-1.2); POTASSIUM 3.6 mmol/L (3.5-5.1)
[2019-12-06] MEDS: ASPIRIN PO SCH (08:36)
[2019-12-06] MEDS: EFFIENT PO SCH (08:36)
[2019-12-06] MEDS: EFFEXOR PO SCH (08:36)
[2019-12-06] MEDS: RANEXA PO SCH (08:36)
[2019-12-06] MEDS: PRINIVIL PO SCH (08:36)
[2019-12-06] MEDS ORDERED: LASIX PO SCH (09:00)
[2019-12-06] MEDS ORDERED: SOLU-MEDROL IV SCH (09:00)
[2019-12-06 11:05] VITALS: BP 141/66
[2019-12-06] MEDS ORDERED: KLOR-CON PO ONE (11:32)
--- NOTE | 2019-12-06 15:45 | DISCHARGE SUMMARY ---
ADMISSION DATE: 12/03/2019 DISCHARGE DATE: 12/06/2019 DISCHARGE DISPOSITION: Home. DISCHARGE CONDITION: Hemodynamically stable. SUMMARY: He is breathing well on room air. He denies any chest pain, shortness of breath, or cough. He states that he has been taking Lasix 2 or 3 times a day. He states he saw his heart doctor 3 weeks ago, and he would be able to see him again next week or in 10 days' time. I discussed with him about his congestive heart failure. I discussed with him about significantly reduced ejection fraction, as well as risk for sudden cardiac . He understood it. He was a little upset with me, since I was seeing him a little late into the day. 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 He understood it. I allowed him to ask questions and answered all of them. DISCHARGE DIAGNOSES: 1. Acute hypoxic respiratory failure. 2. Acute pulmonary edema. 3. Acute on chronic systolic congestive heart failure exacerbation with ejection fraction of 25%. According to outside echo report, which was performed in September 2019 at [facility]. 4. Wheezing, likely in the setting of acute congestive heart failure. The patient did not have history of chronic obstructive pulmonary disease. 5. Elevated D-dimer with negative ultrasound of lower extremities though the final report is pending. The preliminary report was negative. 6. Insulin-dependent diabetes mellitus type 2. 7. Chronic kidney disease stage 3. OTHER DIAGNOSES: 1. History of essential hypertension. 2. History of hyperlipidemia. 3. History of chronic kidney disease stage 3. 4. History of coronary artery disease status post, coronary artery bypass grafting in 2015, multiple stents in 2018, status post AICD in 2019. 5. History of obstructive sleep apnea. 6. History of rheumatoid arthritis with hand deformities. 7. Reported history of cerebrovascular accident. DISCHARGE MEDICATIONS: 1. Aspirin 81 mg at nighttime. 2. Prasugrel 10 mg daily. 3. Metformin extended release 500 mg at nighttime. 4. Insulin glargine 25 units in the morning time. 5. Lisinopril 20 mg at nighttime. 6. Ranolazine extended release 500 mg b.i.d. 7. Ropinirole 4 mg at nighttime. 8. Furosemide 40 mg b.i.d. 60 tablets have been prescribed. 9. Acetaminophen 650 mg every 6 hours as needed for pain. PHYSICAL EXAMINATION: Vital Signs: At time of discharge, temperature 97.6 degrees, pulse 73, respiratory 18, blood pressure 141/66, saturating 95% on room air. General: Mr. Vila was not in acute distress. HEENT: Oral cavity was moist. Lungs: Air entry bilaterally equal. No wheeze, rhonchi or crackles. Cardiovascular: S1 normal. No gallop. Abdomen: Obese, soft, nontender. He had mild. Extremity: Edema which is significantly improved from previous examination. He had a scar from knee surgery on the left. He had rheumatoid arthritis deformity of the hands. LABS: During hospital admission discharge: WBC 8.3, hemoglobin 12.5, platelet 269,000, sodium 140, potassium 3.6. He got oral potassium. BUN 66, creatinine 2.5, blood glucose 279. ProBNP improved from more than 35,000 on presentation to 10,972 at the time of discharge. MICROBIOLOGY: No data. IMAGIN. Chest x-ray on presentation had a pulmonary edema 2. Electrocardiogram on presentation had ventricularly paced rhythm. HOSPITAL COURSE SUMMARY: Mr. Vila is a 79-year-old man with past medical history of coronary artery disease requiring CABG, multiple stents, as well as AICD and probably chronic systolic congestive heart failure with ejection fraction of 25%. He came in on 12/03/2019 with chief complaint of shortness of breath and cough for past 3 days, which was progressively getting worse. In the emergency room, the patient was found to have temperature of 98.2 degrees, pulse of respiratory rate 26, blood pressure of 148/94, and he was saturating 96%. However, while inside the hospital, his shortness of breath progressed and he started requiring more and more oxygen. On lab evaluation, he had elevated proBNP of more than 35,000 and pulmonary vascular congestion with acute pulmonary edema on chest x-ray. So the hospitalist team was consulted for further management. The patient was diagnosed with acute on chronic systolic congestive heart failure with ejection fraction of 30%, acute pulmonary edema considering clinical findings as well as elevated proBNP. His EKG had ventricularly paced rhythm and troponin had shown flat trend of 35. It was thought that his acute episode of CHF was related to dietary and medication indiscretion. He was started on BiPAP, he was admitted to cardiac telemetry unit and was treated with intravenous diuretics. Following institution of intravenous diuretics the patient made a significant amount of urine and by the time of hospital discharge, he had made 9.8 L of urine within and net 8 L negative. His diuretic doses were changed to oral. His proBNP was also coming down. Initially, he required inhaled bronchodilators and steroids for his wheezing, though he did not have any history of chronic obstructive pulmonary disease. Later on the steroids were discontinued. He did have inhalers at home which he was advised to use. At the time of discharge, he was hemodynamically stable. Though my initial plan was to monitor him inside the hospital for at least another 24 hours on oral Lasix, the patient was angry about being in the hospital and wanted to go home. He was counseled about his congestive heart failure, sudden cardiac . He was extensively counseled about following up with regular doctor as well as heart doctor within 7 days of time. Records from his regular doctor and heart doctors were requested. However, they could not be obtained in time considering the weekend. the patient did not want to stay back, so it was decided to discharge him. A prescription of oral Lasix was provided to him. TIME SPENT WITH PATIENT: There were 35 minutes were spent on discharging this patient. I sat down and explained to him in detail about his clinical condition, future risk, risk of sudden cardiac , need for being medically compliant and all of his questions were answered. cc: Lenny Lutz MD
--- NOTE | 2019-12-08 08:38 | Extremity Venous Study ---
PROCEDURE NAME: Venous U/S Left Leg - 12/04/2019 REFERRING PHYSICIAN: DR. Lutz READING PHYSICIAN: Cristhian Woody MD JOB COACH/JOB DEVELOPER: Luis. INDICATION: Followup of previous DVT. COMPARISON STUDY: 11/10/2018. FINDINGS: The deep and superficial veins of the left lower extremity were imaged throughout their course. They are compressible, patent without thrombus. INTERPRETATION: No DVT or SVT of the left lower extremity. There is resolution of the prior DVT. cc: MD Lenny Govea MD
== END 2019-12-06 15:56 | disposition home health service (06) | DRG 291 ==
LOC: ED 13:15 → EDIPHOLD 13:16 → 2N 20:25
PROVIDERS: ATTEND Internal Medicine